=== PATIENT | female | born 1990 | race Caucasian/White ===

== ENCOUNTER 2021-09-25 03:13 | Emergency (ER) | payer OTHER ==
[2021-09-25 03:27] VITALS: BMI 25.7
[2021-09-25] MEDS ORDERED: ACETAMINOPHEN 1000 MG/100 ML BAG IVPB ONE (03:53)
[2021-09-25] MEDS ORDERED: LIDOCAINE 5% TOPICAL PATCH TP ONE (03:54)
[2021-09-25] MEDS ORDERED: ACETAMINOPHEN 500 MG TABLET (FP) PO ONE (04:01)
[2021-09-25] MEDS ORDERED: LIDOCAINE 5% TOPICAL PATCH ONE (04:01)
[2021-09-25] MEDS ORDERED: ACETAMINOPHEN 500 MG TABLET (FP) ONE (04:01)
[2021-09-25 06:20] VITALS: BP 114/62; PULSE 70; TEMP 98.5
[2021-09-25] MEDS ORDERED: LIDOCAINE PATCH REMOVAL MC SCH (22:00)
== END 2021-09-25 06:52 | disposition home or self-care (01) ==
LOC: JER 03:13
DX: S09.90XA Unspecified injury of head, initial encounter (principal); W00.0XXA Fall on same level due to ice and snow, initial encounter
CPT/HCPCS: 70450-TC; 72125-TC; 82962; 99284-25

== ENCOUNTER 2021-11-18 17:55 | Emergency (ER) | payer OTHER ==
[2021-11-18 18:04] VITALS: BP 133/81; PULSE 76; TEMP 97.8; BMI 25.7
[2021-11-18] MEDS ORDERED: KETOROLAC TROMETHAMINE 60 MG/2 ML VIAL IM ONE (18:54)
[2021-11-18] MEDS ORDERED: LIDOCAINE 5% TOPICAL PATCH TP ONE (18:54)
[2021-11-18] MEDS ORDERED: LIDOCAINE 5% TOPICAL PATCH ONE (19:07)
[2021-11-18] MEDS ORDERED: KETOROLAC TROMETHAMINE 30 MG/1 ML VIAL ONE (19:07)
== END 2021-11-18 19:57 | disposition home or self-care (01) ==
LOC: JERFT 17:55
PROC: 3E0233Z Introduction of Anti-inflammatory into Muscle, Percutaneous Approach (ICD-10-PCS; principal; 2021-11-18)
DX: S03.00XA Dislocation of jaw, unspecified side, initial encounter (principal); Y99.9 Unspecified external cause status
CPT/HCPCS: 99284-25